=== PATIENT | male | born 1980 | race Caucasian/White ===

== ENCOUNTER 2020-07-11 20:04 | Inpatient (IN) | payer MEDICAID ==
[~2020-07-11] VITALS: Ht 177.8 cm; Wt 63.0 kg
[2020-07-11] MEDS ORDERED: DICYCLOMINE HCL 10 MG CAPSULE PO ONE ×2 (20:43→21:00)
--- NOTE | 2020-07-11 20:45 | NUR ---
UNABLE TO PROVIDE URINE SAMPLE
[2020-07-11 20:53] LABS: BASOPHILS % (AUTO) 0.2 % (0.0-2.0); HEMATOCRIT 24 % (39-51); LYMPHOCYTES # (AUTO) 1.6 /CMM (0.8-4.8); LYMPHOCYTES % (AUTO) 10.4 % (20.0-44.0); MEAN CORPUSCULAR HGB CONC 28 g/dl (31.0-36.0); MEAN CORPUSCULAR VOLUME 56 fL (80-96); MONOCYTES # (AUTO) 0.7 /CMM (0.1-1.30); MONOCYTES % (AUTO) 4.4 % (2.0-12.0); NEUTROPHILS # (AUTO) 13.5 /CMM (1.8-8.9); PLATELET COUNT (AUTO) 286 /CMM (150-450); RED BLOOD CELL COUNT(AUTO) 4.22 MIL/uL (4.5-6.0); WHITE BLOOD COUNT (AUTO) 15.8 K/uL (4.3-11.0)
[2020-07-11 21:00] LABS: HEMOGLOBIN 6.7 g/dL (13.5-17.5)
[2020-07-11] MEDS ORDERED: IV NS 0.9% 1,000 ML BAG IV ONE ×2 (21:00→22:30)
[2020-07-11 21:15] LABS: ALBUMIN 2.6 g/dL (3.4-5.0); BILIRUBIN,DIRECT 0.2 mg/dL (0.0-0.2); BILIRUBIN,TOTAL 0.5 mg/dL (0.2-1.0); CALCIUM, SERUM 8.5 mg/dL (8.5-10.1); CREATININE 1.4 mg/dL (0.6-1.3); POTASSIUM 3.9 mmol/L (3.5-5.1); TOTAL PROTEIN, SERUM 7.2 g/dL (6.4-8.2)
--- NOTE | 2020-07-11 21:34 | NUR ---
MIGUELID SWABBED, SENT TO LAB.
[2020-07-11 21:45] LABS: BAND % (MANUAL) 12 % (0.0-5.0); LYMPHOCYTES % (MANUAL) 8 % (16-48); MONOCYTES % (MANUAL) 4 % (0-11.0); NEUTROPHILS % (MANUAL) 76 (42-76)
--- NOTE | 2020-07-11 21:48 | NUR ---
CALLED LAB REGARDING BLOOD WORK. WILL CALL BACK.
[2020-07-11] MEDS ORDERED: ONDANSETRON HCL/PF 4 MG/2 ML VIAL IV ONE (22:00)
[2020-07-11] MEDS ORDERED: MORPHINE SULFATE INJ 2 MG/ML DISP.SYRIN IV ONE (22:00)
[2020-07-11] MEDS ORDERED: IOHEXOL-300 100 ML VIAL IV ONE (22:01)
[2020-07-11] MEDS ORDERED: IV NS 0.9% 250 ML IV ONE (22:02)
[2020-07-11] MEDS ORDERED: CT SWABBABLE VALVE TRANS SET 1 EA INFUS.SET MC ONE (22:03)
--- NOTE | 2020-07-11 22:24 | NUR ---
LAB CALLED REGARDING NEGATIVE COVID RESULT.
[2020-07-11] MEDS ORDERED: ONDANSETRON HCL/PF 4 MG/2 ML VIAL ONE (22:30)
[2020-07-11] MEDS ORDERED: MORPHINE SULFATE INJ 4 MG/ML DISP.SYRIN ONE (22:30)
--- NOTE | 2020-07-11 22:38 | NUR ---
PT MEDICATED, VSS. 09/29 PAIN.
--- NOTE | 2020-07-11 22:40 | NUR ---
RADIOLOGIST SPEAKING TO PA REGARDING PT.
--- NOTE | 2020-07-11 22:44 | NUR ---
DR. DINERO (GENERAL SURGERY) SPEAKING TO ER PAC DISIGRIKIAN REGARDING PLAN OF CARE.
--- NOTE | 2020-07-11 22:50 | NUR ---
TELE 114-2
[2020-07-11] MEDS ORDERED: PIPERACILLIN /TAZOBACTAM 3.375 G VIAL IV ONE (22:54)
--- NOTE | 2020-07-11 22:54 | NUR ---
ANGELICA ALLEN TALKING TO DR. DINERO REGARDING PT.
[2020-07-11] MEDS ORDERED: HYDROMORPHONE 1 MG/1 ML DISP.SYRIN IV ONE (23:00)
[2020-07-11] MEDS ORDERED: PIPERACILLIN /TAZOBACTAM 3.375 G in IV D5W 50 ML IV ONE (23:00)
--- NOTE | 2020-07-11 23:05 | NUR ---
US AT BEDSIDE
[2020-07-11] MEDS ORDERED: HYDROMORPHONE 1 MG/1 ML DISP.SYRIN ONE (23:06)
--- NOTE | 2020-07-11 23:09 | NUR ---
ER TALKING TO DR. HOPPER REGARDING PT ADMISSION
--- NOTE | 2020-07-11 23:18 | NUR ---
CALLED BRIGID BAGLEY, AWARE PT UPGRADED TO ICU PER DR. GORDON.
--- NOTE | 2020-07-11 23:20 | NUR ---
ANGELICA ALLEN SPEAKING TO PT.
--- NOTE | 2020-07-11 23:20 | NUR ---
PT REASSIGNED TO 259
--- NOTE | 2020-07-11 23:26 | NUR ---
PT STATED DOES NOT TAKE ANY HOME MEDICATIONS.
[2020-07-11] MEDS ORDERED: ZOLPIDEM TARTRATE 5 MG TABLET PO PRN (23:30)
[2020-07-11] MEDS ORDERED: MAG HYDROX/AL HYDROX/SIMETH 30 ML UDC PO PRN (23:30)
[2020-07-11] MEDS ORDERED: MAGNESIUM HYDROXIDE 30 ML UDC PO PRN (23:30)
[2020-07-11] MEDS ORDERED: ACETAMINOPHEN 325 MG TABLET PO PRN (23:30)
[2020-07-11] MEDS ORDERED: MORPHINE SULFATE INJ 4 MG/ML DISP.SYRIN IV PRN (23:30)
[2020-07-11] MEDS ORDERED: Z GUARD REMEDY 2 OZ OINT TP PRN (23:30)
--- NOTE | 2020-07-11 23:38 | NUR ---
REPORT GIVEN TO PIEDAD RAINEY FOR MAXINE
[2020-07-11 23:43] LABS: BILIRUBIN,URINE Negative (NEGATIVE); COLOR,URINE YELLOW (YELLOW); LEUKOCYTE ESTERASE ,URINE Negative (NEGATIVE); NITRITE, URINE Negative (NEGATIVE); PH,URINE 5.5 (5.0-8.0); PROTEIN,URINE 30 mg/dl (NEGATIVE); UGLUCOSE Negative (NEGATIVE); UROBILINOGEN,URINE 0.2 EU/dL (0.2)
[2020-07-11 23:55] VITALS: BP 111/66
--- NOTE | 2020-07-11 23:59 | NUR ---
RN/ICU-ADMITTED THIS 39 Y/O MALE FROM ER BY GENNARO ,ACCOMPANIED BY ER STAFF PER ACLS PROTOCOL.NURSING FOCUS: ALTERED COMFORT R/T DIAGNOSIS PERFORATION. ROUTINE ICU ADMISSION CARE INITIATED. AWAKE, ALERT, EXPRESSIVE OF NEEDS.BREATHING C0MES EASY. SATS.-100%,BP-111/66, HR-131 ST. C/O ABDOMINAL PAIN 5/10, ACHY.PT. JUST RECEIVED DILAUDID IVP IN ER. WILL REASSESS PT. AND MEDICATE W/ PAIN MEDICATION NEEDED PER MD ORDER.
--- NOTE | 2020-07-11 23:59 | NUR ---
PT TRANSFERED PER ACLS PROTOCOL
[2020-07-12] VITALS (42 sets, daily range): BP systolic 86–120; BP diastolic 46–72
[2020-07-12] MEDS: IV NS 0.9% 1,000 ML IV PRN ×3 (00:08→19:28)
--- NOTE | 2020-07-12 00:49 | NUR ---
RN/ICU- PT. FOR BLOOD TRANSFUSION OF 2 UNITS PRBC, FOR HH-6.10/13. FIRST UNIT PRBC STARTED. WILL MONITOR PT. CLOSELY FOR ADVERSE REACTIONS.
[2020-07-12 00:53] LABS: BACTERIA,URINE 2+ /HPF (None Seen); MUCUS,URINE Few /LPF (None Seen); RBC,URINE 0-2 /HPF (0-2); SQUAMOUS EPITHELIAL CELL,UR Few /HPF (None Seen); URINE AMORPHOUS URATE Moderate /HPF (None Seen)
--- NOTE | 2020-07-12 01:00 | NUR ---
RN/ICU-PT. C/O ABDOMINAL PAIN, ACHY 10/30, MEDICATED W/ MORPHINE 4MG SIVP. WILL REASSESS FOR PRN EFFECTIVENESS.
--- NOTE | 2020-07-12 01:30 | NUR ---
RN/ICU-DR. HOPPER HERE TO SEE PT.
--- NOTE | 2020-07-12 03:20 | NUR ---
RN/ICU- FIRST UNIT OF BLOOD PRBC TRANSFUSED W/ NO REACTION
[2020-07-12] MEDS: MORPHINE SULFATE INJ 4 MG/ML DISP.SYRIN IV PRN ×4 (03:56→21:22)
[2020-07-12 04:47] LABS: CALCIUM, SERUM 7.9 mg/dL (8.5-10.1); MAGNESIUM 2.1 mg/dL (1.8-2.4); PHOSPHORUS 2.7 mg/dL (2.5-4.9); POTASSIUM 4.3 mmol/L (3.5-5.1)
[2020-07-12 05:20] LABS: THYROID STIMULATING HORMONE 2.315 uIU/mL (0.358-3.74)
[2020-07-12] MEDS ORDERED: FENTANYL PF 250MCG/5ML AMPUL ONE ×2 (05:25→05:26)
[2020-07-12] MEDS ORDERED: FAMOTIDINE/PF INJ 20 MG/2 ML VIAL IV ONE (05:26)
[2020-07-12] MEDS ORDERED: HYDROMORPHONE INJ 2 MG/ML DISP.SYRIN ONE (05:26)
[2020-07-12] MEDS ORDERED: MIDAZOLAM HCL 2 MG/2ML VIAL ONE (05:26)
[2020-07-12] MEDS ORDERED: ANESTHESIA TRAY IN PYXIS 1 EA TRAY MC ONE (05:45)
--- NOTE | 2020-07-12 05:48 | NUR ---
RN/ICU- SECOND UNIT PF PRBC TRANSFUSED W/ NO REACTION
--- NOTE | 2020-07-12 05:55 | NUR ---
RN/ICU- TO OR BY BED ACCOMPANIED BY OR STAFF PER PROTOCOL.
[2020-07-12 06:42] LABS: BASOPHILS # (AUTO) 0.2 /CMM (0.0-0.2); BASOPHILS % (AUTO) 0.9 % (0.0-2.0); HEMATOCRIT 24 % (39-51); HEMOGLOBIN 7.5 g/dL (13.5-17.5); LYMPHOCYTES # (AUTO) 1.2 /CMM (0.8-4.8); LYMPHOCYTES % (AUTO) 6.9 % (20.0-44.0); MEAN CORPUSCULAR HGB CONC 31 g/dl (31.0-36.0); MEAN CORPUSCULAR VOLUME 65 fL (80-96); MONOCYTES # (AUTO) 0.6 /CMM (0.1-1.30); MONOCYTES % (AUTO) 3.7 % (2.0-12.0); NEUTROPHILS # (AUTO) 15.6 /CMM (1.8-8.9); NEUTROPHILS % (AUTO) 88.5 % (43.0-81.0); PLATELET COUNT (AUTO) 218 /CMM (150-450); RED BLOOD CELL COUNT(AUTO) 3.71 MIL/uL (4.5-6.0); WHITE BLOOD COUNT (AUTO) 17.7 K/uL (4.3-11.0)
[2020-07-12] MEDS ORDERED: METRONIDAZOLE 500MG/ NS 100ML 100 ML IV ONE (06:55)
--- NOTE | 2020-07-12 07:15 | NUR ---
RN NOTES PT STILL IN OR
[2020-07-12] MEDS ORDERED: PIPERACILLIN /TAZOBACTAM 3.375 G in IV D5W 100 ML IV SCH (08:00)
[2020-07-12 08:58] LABS: BASOPHILS # (AUTO) 0.1 /CMM (0.0-0.2); BASOPHILS % (AUTO) 0.7 % (0.0-2.0); HEMATOCRIT 26 % (39-51); HEMOGLOBIN 7.8 g/dL (13.5-17.5); LYMPHOCYTES # (AUTO) 1.1 /CMM (0.8-4.8); LYMPHOCYTES % (AUTO) 6.2 % (20.0-44.0); MEAN CORPUSCULAR HGB CONC 30 g/dl (31.0-36.0); MEAN CORPUSCULAR VOLUME 66 fL (80-96); MONOCYTES # (AUTO) 0.7 /CMM (0.1-1.30); NEUTROPHILS # (AUTO) 16.3 /CMM (1.8-8.9); NEUTROPHILS % (AUTO) 89.1 % (43.0-81.0); PLATELET COUNT (AUTO) 231 /CMM (150-450); RED BLOOD CELL COUNT(AUTO) 3.93 MIL/uL (4.5-6.0); WHITE BLOOD COUNT (AUTO) 18.3 K/uL (4.3-11.0)
[2020-07-12 09:06] LABS: CALCIUM, SERUM 7.8 mg/dL (8.5-10.1); POTASSIUM 4.4 mmol/L (3.5-5.1)
--- NOTE | 2020-07-12 09:10 | NUR ---
RN NOTES RECEIVED PT FROM OR, SP EXPLORE LAPAROTOMY. PT A/OX4, ON 02 VIA NC AT 2LPM. NO SOB NOTED. DENIES PAIN AT THIS TIME. HOB ELEVATED. COLOSTOMY AND EVERETTE DRAIN NOTED. NO BLEEDING ON SURGICAL INCISION SITE. IV LINES IN PLACE. IVF RESTARTED.MONTAÑO IN PLACE. CALL LIGHT WTIHIN REACH. WILL CLOSELY MONITOR
[2020-07-12] MEDS: PANTOPRAZOLE 40 MG VIAL IV SCH (09:58)
[2020-07-12] MEDS: ANCEF 1 GM/50 ML D5W IV SCH ×2 (14:15→21:59)
[2020-07-12] MEDS: METRONIDAZOLE 500MG/ NS 100ML 500 MG in PREMIX 1 EA IV SCH ×2 (15:06→22:31)
--- NOTE | 2020-07-12 16:20 | NUR ---
RN NOTES PT REMAINS STABLE. NO SIGNIFICANT CHANGE NOTED. REPORT GIVEN TO BRIGID GARCIA. TOOK OVER PT'S CARE
--- NOTE | 2020-07-12 16:30 | NUR ---
RN NOTES RECEIVED REPORT FROM BRIGID FREEMAN FOR CONTINUITY OF CARE. PATIENT IS AWAKE, ALERT AND ORIENTED. SATURATING WELL ON RA. NSR ON TELE MONITOR. VITAL SIGNS POST OP STABLE. ABDOMINAL DRESSING DRY AND INTACT. EVERETTE BULB SUCTION INTACT.COLOSTOMY BAG WITH SCANT OUTPUT. MONTAÑO DRAINING TO GRAVITY. SAFETY CHECKS IN PLACE. WILL CONTINUE TO MONITOR.
--- NOTE | 2020-07-12 17:20 | NUR ---
RN NOTE PATIENT C/O 7-10 GENERALIZED ABDO PAIN. IV MORPHINE GIVEN PRESCRIBED. INCENTIVE SPIROMETRY OFFERED AND EDUCATED ON HOW TO USE.
[2020-07-12] MEDS ORDERED: diphenhydrAMINE HCL 50 MG/ML VIAL IV ONE (18:30)
[2020-07-12] MEDS ORDERED: ACETAMINOPHEN 325 MG TABLET PO ONE (18:30)
--- NOTE | 2020-07-12 19:00 | NUR ---
RN CLOSING NOTES PATIENT REMAINS AWAKE, ALERT AND ORIENTED. NOT IN ANY RESPIRATORY DISTRESS. RBC IN PROGRESS WITH NO SIGNS OF ADVERSE REACTIONS AT THIS TIME. VITAL SIGNS REMAIN STABLE. EVERETTE BULB EMPTIED 40MLS. COLOSTOMY BAG WITH SCANT OUTPUT. MONTAÑO DRAINING 900MLS. SAFETY CHECKS IN PLACE. WILL ENDORSE TO NIGHT RN FOR CONTINUITY OF CARE.
--- NOTE | 2020-07-12 19:17 | NUR ---
RN NOTE RECEIVED PT AWAKE AND ALERT/ORIENTED X 4. ON ROOM AIR WITHOUT APPARENT DISTRESS. CURRENTLY DENIES SHORTNESS OF BREATH, PAIN OR DISCOMFORT, VITAL SIGNS STABLE VIA BEDSIDE MONITOR. WITH ONGOING BLOOD TRANSFUSION VIA LEFT AC IV. NO ADVERSE REACTIONS CURRENTLY NOTED. S/P SURGERY TODAY. DRESSING CLEAN AND INTACT. WITH EVERETTE DRAIN WITH MINIMAL DRAINAGE NOTED. WITH RIGHT COLOSTOMY WITH SCANT DRAINAGE/OUTPUT. MONTAÑO CATHETER PATENT AND IN PLACE DRAINING URINE VIA GRAVITY. ALSO WITH RIGHT AC IV WITH NS @ 125ML/HOUR RUNNING ORDERED WITHOUT SIGNS OF COMPLICATIONS AT SITE, PLAN OF CARE DISCUSSED, SAFETY MEASURES IN PLACE PER PROTOCOL, CALL LIGHT WITHIN REACH, WILL MONITOR PATIENT.
--- NOTE | 2020-07-12 20:04 | NUR ---
RN NOTE PT EDUCATED ON USE OF INCENTIVE SPIROMETER. PT VERBALIZED UNDERSTANDING. DENIES PAIN OR DISCOMFORT AT THIS TIME.
--- NOTE | 2020-07-12 21:50 | NUR ---
RN NOTE BLOOD TRANSFUSION COMPLETED. NO ADVERSE REACTIONS NOTED. VITAL SIGNS STABLE VIA BEDSIDE MONITOR. WILL CONTINUE TO MONITOR PT.
--- NOTE | 2020-07-12 22:11 | NUR ---
RN NOTE PT REPORTED "SOME DIFFICULTY BREATHING". RESPIRATIONS UNLABORED. SPO2 97%. PLACED PT ON 2L OF O2 VIA NC PER REQUEST WITH VERBALIZATION OF RELIEF OF SYMPTOMS.
[2020-07-13] VITALS (25 sets, daily range): BP systolic 98–113; BP diastolic 56–72
[2020-07-13] MEDS: MORPHINE SULFATE INJ 4 MG/ML DISP.SYRIN IV PRN ×2 (01:38→04:06)
[2020-07-13] MEDS: IV NS 0.9% 1,000 ML IV PRN ×3 (04:06→21:17)
[2020-07-13] MEDS: ONDANSETRON HCL/PF 4 MG/2 ML VIAL IVP PRN (04:06)
[2020-07-13 04:44] LABS: BASOPHILS % (AUTO) 0.1 % (0.0-2.0); EOSINOPHILS % (AUTO) 0.2 % (0.0-6.0); HEMATOCRIT 25 % (39-51); HEMOGLOBIN 7.9 g/dL (13.5-17.5); LYMPHOCYTES # (AUTO) 3.2 /CMM (0.8-4.8); LYMPHOCYTES % (AUTO) 25.9 % (20.0-44.0); MEAN CORPUSCULAR HGB CONC 31 g/dl (31.0-36.0); MEAN CORPUSCULAR VOLUME 67 fL (80-96); MONOCYTES # (AUTO) 0.6 /CMM (0.1-1.30); NEUTROPHILS # (AUTO) 8.6 /CMM (1.8-8.9); NEUTROPHILS % (AUTO) 68.8 % (43.0-81.0); PLATELET COUNT (AUTO) 216 /CMM (150-450); RED BLOOD CELL COUNT(AUTO) 3.77 MIL/uL (4.5-6.0); WHITE BLOOD COUNT (AUTO) 12.5 K/uL (4.3-11.0)
[2020-07-13 04:53] LABS: CALCIUM, SERUM 7.9 mg/dL (8.5-10.1); CREATININE 0.9 mg/dL (0.6-1.3); PHOSPHORUS 2.3 mg/dL (2.5-4.9)
[2020-07-13] MEDS: ANCEF 1 GM/50 ML D5W IV SCH ×3 (05:00→21:09)
--- NOTE | 2020-07-13 05:00 | NUR ---
RN NOTE PT AWAKE IN BED IN NO APPARENT DISTRESS. OFFERED PT PARTIAL BED BATH AND/OR LINEN CHANGE BUT PT REFUSED.
--- NOTE | 2020-07-13 05:39 | NUR ---
RN NOTE MONTAÑO CATHETER DISCONTINUED PER MD ORDER. PT TOLERATED WELL. URINAL AT BEDSIDE REACHABLE.
[2020-07-13] MEDS: METRONIDAZOLE 500MG/ NS 100ML 500 MG in PREMIX 1 EA IV SCH ×3 (06:08→22:34)
--- NOTE | 2020-07-13 06:08 | NUR ---
RN NOTE HGB 7.9. WITH STANDING ORDER TO TRANSFUSE ADDITIONAL BLOOD IF HGB < 8. BLOOD TRANSFUSION STARTED VIA RIGHT HAND. WILL MONITOR PATIENT.
--- NOTE | 2020-07-13 06:41 | NUR ---
RN NOTE NO ACUTE CHANGES OBSERVED OVERNIGHT. PT AWAKE AND ALERT/ORIENTED X 4. PT ON 2L OF O2 VIA NC. RESPIRATIONS UNLABORED. CURRENTLY DENIES PAIN OR DISCOMFORT. ONGOING TRANSFUSION OF 1 UNIT PRBCS. CURRENTLY NO ADVERSE REACTIONS NOTED. VITAL SIGNS STABLE VIA BEDSIDE MONITOR. SURGICAL DRESSING DRY AND INTACT. EVERETTE DRAIN WITH 20ML OF OUTPUT. SCANT DRAINAGE VIA COLOSTOMY. ALL NEEDS MET AND ATTENDED TO, WILL ENDORSE TO MORNING RN FOR MAXINE.
--- NOTE | 2020-07-13 07:15 | NUR ---
RN INITIAL NOTES RECEIVED PT AWAKE,A/O. ON 02 VIA NC AT 2LPM. DENIES ANY PAIN AT THIS TIME. IVF INFUSING. 1 UNIT OF PRBC TRANSFUISNG. NO REACTION NOTED. PT COMFORTABLE. CALL LIGHT WITHIN REACH. WILL MONITOR
[2020-07-13 08:07] LABS: IMMUNOGLOBULIN A, SERUM 271 mg/dL (90-386); IMMUNOGLOBULIN G, SERUM 623 mg/dL (603-1613); IMMUNOGLOBULIN M, SERUM 96 mg/dL (20-172)
[2020-07-13] MEDS: PANTOPRAZOLE 40 MG VIAL IV SCH (08:20)
[2020-07-13] MEDS: HYDROMORPHONE 1 MG/1 ML DISP.SYRIN IV PRN ×4 (09:24→21:09)
[2020-07-13 11:07] LABS: *SPE A/G RATIO 0.7 (0.7-1.7); *SPE ALBUMIN 2.1 g/dL (2.9-4.4); *SPE ALPHA-1-GLOBULIN 0.5 g/dL (0.0-0.4); *SPE ALPHA-2-GLOBULIN 0.9 g/dL (0.4-1.0); *SPE GLOBULIN, TOTAL 2.9 g/dL (2.2-3.9); *SPE M-SPIKE Not Observed g/dL (Not Observed); *SPEGAMMA GLOBULIN 0.5 g/dL (0.4-1.8)
[2020-07-13] MEDS ORDERED: Sodium Phosphate 15 MMOL in IV NS 0.9% 245 ML IV SCH (13:00)
--- NOTE | 2020-07-13 17:00 | NUR ---
RN NOTES PT TRANSFERRED TO ROOM 321-1.PT A/OX4, ON ROOM AIR. NO SOB NOTED. DENIES ANY PAIN AT THIS TIME. BEDSIDE REPORT GIVEN TO MARISOL. TOOK OVER PT'S CARE. PT IN STABLE CONDITION.
--- NOTE | 2020-07-13 17:15 | NUR ---
m/s machine folder: notes received pt from icu via bed, pt is awake, a/ox4. oriented to room and surroundings. vss, afebrile. humberto drain intact. colostomy intact and secure with pouch. instructed to call for assistance. will continue to monitor.
--- NOTE | 2020-07-13 17:22 | NUR ---
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 instructed to call for assistance. will continue to monitor.
--- NOTE | 2020-07-13 19:08 | NUR ---
m/s supervisor polishing: notes report given to demetri (rn) for continuity of care.
--- NOTE | 2020-07-13 19:15 | NUR ---
MS RN OPENING NOTE PATIENT AWAKE, A/O X4. EVERETTE DRAIN INTACT, DRAINING SEROUS FLUID. COLOSTOMY INTACT, SMALL AMOUNT OF BLOODY/SEROSANGUINEOUS FLUID IN THE POUCH. IV ACCESS INTACT, IV FLUIDS INFUSING WELL. PATIENT COMPLAINS OF MILD DISCOMFORT IN THE ABDOMINAL AREA. SAFETY PRECAUTIONS IN PLACE: BED IN LOCKED AND LOWEST POSITION, CALL LIGHT WITHIN REACH, URINAL WITHIN REACH. ENCOURAGED PATIENT TO CALL IF IN NEED OF ANY HELP. WILL MONITOR PATIENT CLOSELY.
[2020-07-13] MEDS ORDERED: LIDOCAINE 1% INJ 50 ML MDV IJ ONE (20:00)
--- NOTE | 2020-07-13 20:30 | NUR ---
MS RN NOTE PATIENT MOVED TO 320-1, PER PATIENT REQUEST TO PROMOTE REST AND SLEEP.
--- NOTE | 2020-07-13 21:10 | NUR ---
MS RN NOTE PATIENT GIVEN DILAUDID 1MG FOR PAIN ON THE ABDOMEN 9/10 ON PAIN SCALE OF 0-10.
[2020-07-14] MEDS: HYDROMORPHONE 1 MG/1 ML DISP.SYRIN IV PRN ×6 (00:30→17:02)
--- NOTE | 2020-07-14 00:30 | NUR ---
MS RN NOTE PATIENT GIVEN DILAUDID 1 MG FOR PAIN 10/10 ON 0-10 PAIN SCALE.
--- NOTE | 2020-07-14 03:36 | NUR ---
MS RN NOTE PATIENT GIVEN DILAUDID 1 MG FOR ABDOMINAL PAIN 10/10 ON 0-10 PAIN SCALE.
[2020-07-14] MEDS: ANCEF 1 GM/50 ML D5W IV SCH ×3 (05:42→22:20)
[2020-07-14] MEDS: IV NS 0.9% 1,000 ML IV PRN ×2 (06:24→17:10)
[2020-07-14] MEDS: METRONIDAZOLE 500MG/ NS 100ML 500 MG in PREMIX 1 EA IV SCH ×3 (06:24→23:10)
--- NOTE | 2020-07-14 06:33 | NUR ---
MS RN NOTE PATIENT GIVEN DILAUDID 1 MG FOR ABDOMINAL PAIN 10/10 ON 0-10 PAIN SCALE.
[2020-07-14 06:45] LABS: BASOPHILS % (AUTO) 0.3 % (0.0-2.0); EOSINOPHILS % (AUTO) 0.2 % (0.0-6.0); HEMATOCRIT 31 % (39-51); HEMOGLOBIN 9.4 g/dL (13.5-17.5); LYMPHOCYTES # (AUTO) 0.7 /CMM (0.8-4.8); LYMPHOCYTES % (AUTO) 4.7 % (20.0-44.0); MEAN CORPUSCULAR HGB CONC 30 g/dl (31.0-36.0); MEAN CORPUSCULAR VOLUME 72 fL (80-96); MONOCYTES # (AUTO) 1.2 /CMM (0.1-1.30); MONOCYTES % (AUTO) 7.8 % (2.0-12.0); NEUTROPHILS # (AUTO) 13.2 /CMM (1.8-8.9); PLATELET COUNT (AUTO) 253 /CMM (150-450); RED BLOOD CELL COUNT(AUTO) 4.31 MIL/uL (4.5-6.0); WHITE BLOOD COUNT (AUTO) 15.1 K/uL (4.3-11.0)
--- NOTE | 2020-07-14 06:52 | NUR ---
MS RN CLOSING NOTE PATIENT IN BED, AWAKE, A/O X 4. PATIENT ABLE TO MAKE NEEDS KNOWN. BREATHING EVEN AND UNLABORED. NO SOB, DYSPNEA. EVERETTE DRAIN INTACT, 30 ML TOTAL. COLOSTOMY SCANT DRAINAGE. PATIENT COMPLAINS OF MILD PAIN AT THIS TIME. PATIENT WAS GIVEN DILAUDID AT 0633. PAIN MANAGED THROUGHOUT THE SHIFT. ALL NEEDS MET AND ATTENDED. SAFETY MEASURES MAINTAINED. WILL ENDORSE TO DAY SHIFT NURSE FOR MAXINE.
--- NOTE | 2020-07-14 07:28 | NUR ---
MS RN OPENING NOTES RECEIVED PATIENT IN BED, ASLEEP. PATIENT ON ROOM AIR; BREATHING EVEN AND UNLABORED. NO S/S OF PAIN SUCH FACIAL GRIMACING, MOANING OR GUARDING NOTED AT THIS TIME. R SIDE EVERETTE DRAIN PRESENT. COLOSTOMY SCANT IN PLACE. LAC G # 18 PRESENT AND R HAND G # 20 IV ACCESS PRESENT, INTACT AND INFUSING NS @125 MLS/HR. SAFETY PRECAUTIONS IN PLACE; BED IN LOW POSITION AND LOCKED, RAILS UPX2, CALL LIGHT WITHIN REACH. WILL CONTINUE TO MONITOR PATIENT.
[2020-07-14 07:47] LABS: CALCIUM, SERUM 8.4 mg/dL (8.5-10.1); CREATININE 0.8 mg/dL (0.6-1.3); MAGNESIUM 1.9 mg/dL (1.8-2.4); PHOSPHORUS 2.7 mg/dL (2.5-4.9); POTASSIUM 3.4 mmol/L (3.5-5.1)
[2020-07-14 08:00] VITALS: BP 104/73
[2020-07-14] MEDS: PANTOPRAZOLE 40 MG VIAL IV SCH (08:05)
--- NOTE | 2020-07-14 09:43 | NUR ---
MS RN NOTES PATIENT COMPLAINING OF PAIN 10/10 ABDOMINAL AREA; REQUESTING PAIN MEDICATION. PRN DILAUDID ADMINISTERED PER MD ORDER.
[2020-07-14] MEDS ORDERED: POTASSIUM CHLORIDE 20 MEQ TAB.PRT.SR PO SCH (11:00)
[2020-07-14] MEDS: SOD FERRIC GLUC 125 MG in IV NS 0.9% 100 ML IV SCH (15:40)
[2020-07-14 16:00] VITALS: BP 115/70
--- NOTE | 2020-07-14 18:56 | NUR ---
MS RN CLOSING NOTES PATIENT IN BED, AWAKE, ALERT, ORIENTED X4, ABLE TO MAKE NEEDS KNOWN. BREATHING EVEN AND NON-LABORED. NO COMPLAINT OF PAIN OR DISCOMFORT AT THIS TIME. EVERETTE DRAIN NOTED, INTACT WITH SEROSANGUINEOUS DRAINAGE. SURGICAL DRESSING NOTED IN THE MID ABDOMEN, INTACT, NO FOUL ODOR. COLOSTOMY ON LEFT ABDOMEN NOTED, INTACT. ALL DUE MEDS ARE GIVEN ORDERED, TOLERATED WELL, NO ADR NOTED. KEPT CLEAN AND DRY. SAFETY MEASURES IN PLACE; BED IN LOWEST LOCKED POSITION WITH SIDERAILS UP. ALL NEEDS ATTENDED PROMPTLY. CALL LIGHT WITHIN REACH. WILL ENDORSE PLAN OF CARE TO LOCK AND DAM OPERATOR.
--- NOTE | 2020-07-14 19:11 | NUR ---
MS RN OPENING NOTES PATIENT IS AWAKE IN BED AT THIS TIME. PT IS ALERT AND ORIENTED X4. PATIENT IS STABLE ON ROOM AIR AND IN NO RESPIRATORY DISTRESS. PATIENT IS ABLE TO MAKE HIS NEEDS KNOWN. EVERETTE DRAIN NOTED. SURGICAL DRESSING NOTED IN THE MID ABDOMEN. COLOSTOMY ON LEFT ABDOMEN NOTED. PATIENT HAS INTRAVENOUS ACCESSES ON HIS LAC GAUGE #18 AND RIGHT HAND GAUGE #20. BOTH INTRAVENOUS ACCESSES ARE INTACT AND PATENT. SAFETY MEASURES ARE KEPT IN PLACE. BED IS IN A LOCKED POSITION WITH SIDE RAILS UP X3. CALL LIGHT IS WITHIN REACH OF THE PATIENT. WILL CONTINUE TO MONITOR THE PATIENT.
[2020-07-14] MEDS: ONDANSETRON HCL/PF 4 MG/2 ML VIAL IVP PRN ×4 (19:44→23:50)
[2020-07-14 20:00] VITALS: BP 118/71
--- NOTE | 2020-07-14 23:44 | NUR ---
MS RN NOTES PATIENT WAS NOT GIVEN ZOFRAN 4 MG INTRAVENOUSLY AT 2344 BECAUSE THE MEDICATION ORDER FREQUENCY IS EVERY 6 HOURS NEEDED AND THE PATIENT'S LAST DOSE WAS AT 1944. RN WILL GIVE THE ZOFRAN 4MG SOON 0144 IF THE PATIENT IS EXPERIENCING ANY NAUSEA/VOMITING. WILL CONTINUE TO MONITOR THE PATIENT.
[2020-07-15] MEDS: ONDANSETRON HCL/PF 4 MG/2 ML VIAL IVP PRN ×2 (01:54→08:37)
[2020-07-15] MEDS: IV NS 0.9% 1,000 ML IV PRN ×2 (05:27→17:13)
[2020-07-15] MEDS: METRONIDAZOLE 500MG/ NS 100ML 500 MG in PREMIX 1 EA IV SCH ×3 (07:12→07:56)
--- NOTE | 2020-07-15 07:13 | NUR ---
MS RN NOTES PATIENT'S INTRAVENOUS FLAGYL WAS NOT GIVEN AT 0713. THE MEDICATION WAS ACCIDENTLY SCANNED. THE MEDICATION WAS ACTUALLY GIVEN AT 0756. WILL CONTINUE TO MONITOR THE PATIENT.
[2020-07-15] MEDS: ANCEF 1 GM/50 ML D5W IV SCH ×3 (07:14→21:26)
[2020-07-15 07:19] LABS: BASOPHILS % (AUTO) 0.2 % (0.0-2.0); HEMATOCRIT 36 % (39-51); HEMOGLOBIN 10.6 g/dL (13.5-17.5); LYMPHOCYTES # (AUTO) 0.9 /CMM (0.8-4.8); LYMPHOCYTES % (AUTO) 4.8 % (20.0-44.0); MEAN CORPUSCULAR HGB CONC 30 g/dl (31.0-36.0); MEAN CORPUSCULAR VOLUME 73 fL (80-96); MONOCYTES # (AUTO) 1.5 /CMM (0.1-1.30); MONOCYTES % (AUTO) 7.8 % (2.0-12.0); NEUTROPHILS # (AUTO) 16.3 /CMM (1.8-8.9); NEUTROPHILS % (AUTO) 87.2 % (43.0-81.0); PLATELET COUNT (AUTO) 310 /CMM (150-450); RED BLOOD CELL COUNT(AUTO) 4.84 MIL/uL (4.5-6.0); WHITE BLOOD COUNT (AUTO) 18.7 K/uL (4.3-11.0)
--- NOTE | 2020-07-15 07:30 | NUR ---
MS RN CLOSING NOTES PATIENT IS AWAKE IN BED AT THIS TIME. PT IS ALERT AND ORIENTED X4. PATIENT IS STABLE ON ROOM AIR AND IN NO RESPIRATORY DISTRESS. PATIENT IS ABLE TO MAKE HIS NEEDS KNOWN. EVERETTE DRAIN NOTED. SURGICAL DRESSING NOTED IN THE MID ABDOMEN. COLOSTOMY ON LEFT ABDOMEN NOTED. PATIENT HAS INTRAVENOUS ACCESS ON RIGHT HAND GAUGE #20. INTRAVENOUS ACCESS IS INTACT AND PATENT. SAFETY MEASURES ARE KEPT IN PLACE. BED IS IN A LOCKED POSITION WITH SIDE RAILS UP X3. CALL LIGHT IS WITHIN REACH OF THE PATIENT. WILL CONTINUE TO MONITOR THE PATIENT.
--- NOTE | 2020-07-15 07:30 | NUR ---
MS RN NOTES PATIENT'S LATEST POTASSIUM LEVEL WAS 2.5 AND PHOSPHORUS LEVEL WAS 2.3. MORNING SHIFT NURSE WAS MADE AWARE TO INFORM THE DOCTOR TO PUT IN ORDERS TO REPLACE THE LOW POTASSIUM AND PHOSPHOROUS LEVELS.
--- NOTE | 2020-07-15 07:40 | NUR ---
MS RN OPENING NOTES RECEIVED PATIENT AWAKE IN BED. ALERT AND ORIENTED X4. ON ROOM AIR, NO RESPIRATORY DISTRESS OBSERVED . PATIENT IS ABLE TO MAKE HIS NEEDS KNOWN. WITH RT SIDE EVERETTE DRAIN NOTED WITH SANGUINOUS FLUID WITH 20CC RETENTION, SURGICAL DRESSING ON MID ABDOMEN CLEAN AND DRY. COLOSTOMY ON LEFT ABDOMEN WITH BLODDY DISCHARGE AT AROUND 20CC . PATIENT HAS INTRAVENOUS ACCESSES ON HIS LAC GAUGE #18 AND RIGHT HAND GAUGE #20. BOTH INTRAVENOUS ACCESSES ARE INTACT AND PATENT. SAFETY MEASURES ARE KEPT IN PLACE. BED IN A LOW POSITION.,WITH SIDE RAILS UP X3. CALL LIGHTS WITHIN REACH WILL CONTINUE TO MONITOR.
[2020-07-15 07:50] LABS: CALCIUM, SERUM 8.8 mg/dL (8.5-10.1); CREATININE 0.7 mg/dL (0.6-1.3); MAGNESIUM 1.9 mg/dL (1.8-2.4); PHOSPHORUS 3.2 mg/dL (2.5-4.9); POTASSIUM 3.6 mmol/L (3.5-5.1)
[2020-07-15 08:00] VITALS: BP 122/71
--- NOTE | 2020-07-15 08:48 | NUR ---
RN NOTES PT C/O NAUSEA, PRN ZOFRAN 4MG/2ML ADMINISTERED AT 0837. WILL CONTINUE TO MONITOR.
[2020-07-15] MEDS: PANTOPRAZOLE 40 MG VIAL IV SCH (09:07)
[2020-07-15 09:10] LABS: LYMPHOCYTES % (MANUAL) 3 % (16-48); MONOCYTES % (MANUAL) 2 % (0-11.0); MYELOCYTES % 3 % (0-0); NEUTROPHILS % (MANUAL) 92 (42-76)
[2020-07-15] MEDS: HYDROCODONE/APAP 5/325MG TABLET PO PRN ×2 (12:27→17:13)
--- NOTE | 2020-07-15 12:29 | NUR ---
RN NOTES PT C/O ACHING THROBBING PAIN ON MED ABDOMEN, 5/10 SCALE. PRN NORCO 5/325 MG PO GIVEN AT 1227. WILL CONTINUE TO MONITOR AND REASSESS PT.
[2020-07-15] MEDS: SOD FERRIC GLUC 125 MG in IV NS 0.9% 100 ML IV SCH (14:39)
[2020-07-15 16:00] VITALS: BP 112/59
--- NOTE | 2020-07-15 18:40 | NUR ---
MS RN CLOSING NOTES PATIENT IS AWAKE IN BED, NO COMPLAIN OF PAIN AND DISCOMFORT, A/O X4. ON S STABLE CONDITION, ON ROOM AIR, NO RESPIRATORY DISTRESS OBSERVE. EVERETTE DRAIN DRAIN WITH SANGUINOUS FLUID . SURGICAL DRESSING IN MID ABDOMEN CLEAN AND KEPT DRY, COLOSTOMY ON LEFT ABDOMEN NO SIGN OF INFECTION OBSERVED. WITH IV ACCESS ON RIGHT HAND GAUGE #20. INTACT AND PATENT. BED IN LOW POSITION, CALL LIGHTS WITHIN REACH, ALL NEEDS ATTEND, WILL CONTINUE TO MONITOR
[2020-07-15 20:00] VITALS: BP 116/69
--- NOTE | 2020-07-15 20:00 | NUR ---
MS RN NOTE: 1909- received pt. awake on bed; alert and oriented x 4; on room air; on clear liquid diet as ordered; with IVF NSS1L x 125 cc/hr via right hand; with right lower quadrant EVERETTE drain and left lower quadrant colostomy are in place ; siderails x 2 are up; bed alarm is on; call light is within reach; awaiting for possible bone marrow biopsy tomorrow
[2020-07-16] MEDS: HYDROCODONE/APAP 5/325MG TABLET PO PRN ×2 (00:40→04:42)
[2020-07-16] MEDS: IV NS 0.9% 1,000 ML IV PRN ×3 (00:44→22:25)
[2020-07-16] MEDS: ANCEF 1 GM/50 ML D5W IV SCH ×3 (05:11→22:25)
[2020-07-16] MEDS: METRONIDAZOLE 500MG/ NS 100ML 500 MG in PREMIX 1 EA IV SCH ×3 (06:08→23:24)
--- NOTE | 2020-07-16 07:10 | NUR ---
MS RN OPENING NOTES: RECEIVED RESIDENT SLEEP IN BED COMFORTABLY BUT AROUSABLE TO TACTILE AND VERBAL STIMULI, BED IN LOW POSITION, CALL LIGHTS WITHIN REACH, NO COMPLAIN OF PAIN AND DISCOMFORT AT THIS TIME, PATIENT HAS ABDOMINAL SURGERY CLEAN DRY DRESSING INTACT, WITH EVERETTE DRAIN AT THE RIGHT SIDE WITH CLEAR LIGHT BROWNISH, FLUID, DRAINING WELL, WITH COLOSTOMY BAG ON THE LEFT SIDE DRAINING WELL, NO SIGN OF INFECTION WAS OBSERVED, PATIENT IS A/OX4. NO CHANGES IN LOC, AND ABLE TO EXPRESS NEEDS, WILL CONTINUE TO MONITOR.
[2020-07-16 07:29] LABS: CALCIUM, SERUM 7.9 mg/dL (8.5-10.1); CREATININE 0.7 mg/dL (0.6-1.3); POTASSIUM 3.4 mmol/L (3.5-5.1)
[2020-07-16 07:33] LABS: BASOPHILS % (AUTO) 0.2 % (0.0-2.0); HEMATOCRIT 33 % (39-51); HEMOGLOBIN 10.2 g/dL (13.5-17.5); LYMPHOCYTES # (AUTO) 0.9 /CMM (0.8-4.8); LYMPHOCYTES % (AUTO) 5.4 % (20.0-44.0); MEAN CORPUSCULAR HGB CONC 31 g/dl (31.0-36.0); MEAN CORPUSCULAR VOLUME 71 fL (80-96); MONOCYTES # (AUTO) 0.9 /CMM (0.1-1.30); MONOCYTES % (AUTO) 5.7 % (2.0-12.0); NEUTROPHILS # (AUTO) 14.4 /CMM (1.8-8.9); NEUTROPHILS % (AUTO) 88.7 % (43.0-81.0); PLATELET COUNT (AUTO) 399 /CMM (150-450); RED BLOOD CELL COUNT(AUTO) 4.69 MIL/uL (4.5-6.0); WHITE BLOOD COUNT (AUTO) 16.2 K/uL (4.3-11.0)
[2020-07-16 08:00] VITALS: BP 110/67
[2020-07-16] MEDS: PANTOPRAZOLE 40 MG VIAL IV SCH (09:33)
--- NOTE | 2020-07-16 11:17 | NUR ---
RN NOTES: PATIENT SEEN BY DR. DINERO WITH VERBAL ORDER TO COLLECT EVERETTE DRAINAGE FOR CREATININE TEST, SPECIMEN COLLECTED AND SEND TO LABS.
[2020-07-16] MEDS ORDERED: POTASSIUM CHLORIDE 20 MEQ TAB.PRT.SR PO SCH (11:30)
[2020-07-16] MEDS: SOD FERRIC GLUC 125 MG in IV NS 0.9% 100 ML IV SCH (15:00)
[2020-07-16] MEDS: ENSURE CLEAR 237 ML LIQUID (MIX BERRY) PO SCH ×2 (15:23→17:34)
[2020-07-16 16:00] VITALS: BP 143/64
--- NOTE | 2020-07-16 18:45 | NUR ---
MS RN CLOSING NOTES PATIENT IS AWAKE IN BED, NO COMPLAIN OF PAIN AND DISCOMFORT, A/O X4. ON S STABLE CONDITION, ON ROOM AIR, NO RESPIRATORY DISTRESS OBSERVE. EVERETTE DRAIN DRAIN WITH CLEAR LIGHT BROWNISH COLORED FLUID 300CC. SURGICAL DRESSING IN MID ABDOMEN CLEAN AND KEPT DRY, COLOSTOMY ON LEFT ABDOMEN NO SIGN OF INFECTION OBSERVED. WITH IV ACCESS ON RIGHT HAND GAUGE #20. INTACT AND PATENT. PATIENT TRANSFEED TO 313-1 FROM 320-1 BED IN LOW POSITION, CALL LIGHTS WITHIN REACH, ALL NEEDS ATTEND, WILL CONTINUE TO MONITOR
--- NOTE | 2020-07-16 19:15 | NUR ---
MS RN OPENING NOTE PATIENT IN BED, AWAKE. A/O X 4. ABLE TO MAKE NEEDS KNOWN. TOLERATING ROOM AIR. BREATHING EVEN AND UNLABORED. EVERETTE DRAIN INTACT DRAINING SEROUS FLUID. COLOSTOMY INTACT. NO COMPLAINS OF N/V/PAIN OR DISCOMFORT AT THIS TIME. SAFETY PRECAUTIONS IN PLACE. BED IN LOCKED AND LOWEST POSITION, CALL LIGHT WITHIN REACH. ENCOURAGED PATIENT TO CALL IF NEEDED. WILL MONITOR PATIENT CLOSELY.
[2020-07-16 20:00] VITALS: BP 111/75
[2020-07-16] MEDS: ONDANSETRON HCL/PF 4 MG/2 ML VIAL IVP PRN (23:31)
--- NOTE | 2020-07-16 23:31 | NUR ---
MS RN NOTE PATIENT GIVEN ZOFRAN PATIENT COMPLAINED OF NAUSEA. NO EMESIS PRESENT.
[2020-07-17] MEDS ORDERED: METOCLOPRAMIDE HCL 10 MG/2 ML VIAL IV SCH (02:30)
--- NOTE | 2020-07-17 02:40 | NUR ---
MS RN NOTE PATIENT STILL NAUSEATED AND EMESIS PRESENT. 3 EMESIS, TOTAL OF 200 ML EMESIS AMOUNT. RECEIVED ORDER FOR REGLAN PRN, GIVEN TO PATIENT. WILL MONITOR PATIENT CLOSELY.
[2020-07-17] MEDS: ANCEF 1 GM/50 ML D5W IV SCH ×3 (05:45→22:28)
[2020-07-17] MEDS: METRONIDAZOLE 500MG/ NS 100ML 500 MG in PREMIX 1 EA IV SCH ×3 (06:44→23:29)
--- NOTE | 2020-07-17 07:00 | NUR ---
MS RN CLOSING NOTE PATIENT IN BED RESTING, NO N/V PRESENT AT THIS TIME. EVERETTE DRAIN INTACT AND DRAINING WELL, TOTAL OF 435 ML DURING THE SHIFT. COLOSTOMY TOTAL OF 20 ML, COLOSTOMY BAG CHANGED. ALL NEEDS MET AND ATTENDED. ROUTINE MEDICATIONS AND PRN MEDICATIONS GIVEN. ALL ORDERS CARRIED OUT. SAFETY MEASURES MAINTAINED. ENDORSED TO DAY SHIFT NURSE.
[2020-07-17 07:05] LABS: BASOPHILS % (AUTO) 0.1 % (0.0-2.0); EOSINOPHILS % (AUTO) 0.3 % (0.0-6.0); HEMATOCRIT 35 % (39-51); LYMPHOCYTES # (AUTO) 0.9 /CMM (0.8-4.8); MEAN CORPUSCULAR HGB CONC 31 g/dl (31.0-36.0); MEAN CORPUSCULAR VOLUME 71 fL (80-96); MONOCYTES # (AUTO) 0.8 /CMM (0.1-1.30); MONOCYTES % (AUTO) 5.6 % (2.0-12.0); PLATELET COUNT (AUTO) 483 /CMM (150-450); RED BLOOD CELL COUNT(AUTO) 4.96 MIL/uL (4.5-6.0); WHITE BLOOD COUNT (AUTO) 14.8 K/uL (4.3-11.0)
[2020-07-17 07:17] LABS: CALCIUM, SERUM 7.9 mg/dL (8.5-10.1); CREATININE 0.8 mg/dL (0.6-1.3); MAGNESIUM 1.5 mg/dL (1.8-2.4); PHOSPHORUS 2.4 mg/dL (2.5-4.9); POTASSIUM 3.4 mmol/L (3.5-5.1)
--- NOTE | 2020-07-17 07:30 | NUR ---
received pt. in am alert and oriented x4.skin warm and dry.vs stable.abd.dressing dry and intact.humberto site intact.
[2020-07-17] MEDS: ENSURE CLEAR 237 ML LIQUID (MIX BERRY) PO SCH ×3 (08:00→17:00)
--- NOTE | 2020-07-17 08:15 | NUR ---
received call from dr. corrales to get humberto bulb drainage sample to lab to check creatinine level.
[2020-07-17 08:45] VITALS: BP 126/74
--- NOTE | 2020-07-17 09:00 | NUR ---
humberto sample to lab.
[2020-07-17] MEDS: POTASSIUM PHOSPHATE MM 7.5 MMOL in IV NS 0.9% 100 ML IV SCH ×2 (09:28→12:32)
[2020-07-17] MEDS: PANTOPRAZOLE 40 MG VIAL IV SCH (09:28)
[2020-07-17] MEDS: IV NS 0.9% 1,000 ML IV PRN ×2 (11:14→22:40)
--- NOTE | 2020-07-17 13:40 | NUR ---
pt. with multiple piggy backs and antibiotic.
--- NOTE | 2020-07-17 15:00 | NUR ---
orders for low mg.pt. diamond grader light freq.denies pain abd. md elizabeth with abd. x-ray order.humberto bulb being emptied freq.pt. states he told dr. corrales he was not hungry,so he would not be eating all day.stated dr. corrales ok'd.
[2020-07-17 16:24] VITALS: BP 125/69
--- NOTE | 2020-07-17 17:45 | NUR ---
rn emptied pieces of formed stool from colostomy bag.pt. requesting colostomy bag change,even though not leaking and chg. this am.states he does not like looking at it.informed him that too freq. a change would be hard on his skin. pt. stated he did not care.rn advised against this.
[2020-07-17] MEDS: SOD FERRIC GLUC 125 MG in IV NS 0.9% 100 ML IV SCH (18:33)
--- NOTE | 2020-07-17 19:10 | NUR ---
iv infusing along with piggy backs.
--- NOTE | 2020-07-17 19:17 | NUR ---
still to administer mg intravenously.offered to start second iv line.pt. preferred not.
--- NOTE | 2020-07-17 19:30 | NUR ---
MS RN OPENING NOTE PATIENT IN BED AWAKE, A/O X 4. ABLE TO MAKE NEEDS KNOWN. NO N/V COMPLAINTS AT THIS TIME. BREATHING EVEN AND UNLABORED. EVERETTE DRAIN INTACT AND DRAINING SEROUS FLUID. COLOSTOMY STILL INTACT. IV SITE PATENT AND INTACT. ABDOMINAL DRESSING IS STILL IN PLACE, DRY. SAFETY MEASURES IN PLACE. CALL LIGHT WITHIN REACH. WILL MONITOR PATIENT CLOSELY.
--- NOTE | 2020-07-17 19:30 | NUR ---
ivs endorsed to ang mosquera.
[2020-07-17 20:00] VITALS: BP 117/68
[2020-07-17] MEDS: Magnesium 1GM/D5W 100ML PREMIX 100 ML IV SCH (20:12)
--- NOTE | 2020-07-17 20:12 | NUR ---
MS RN NOTE 1 BAG OF MAGNESIUM GIVEN.
--- NOTE | 2020-07-17 21:45 | NUR ---
REPORT RECIEVED FROM MARÍA RAINEY. ASSUMED CARE OF PATIENT.
--- NOTE | 2020-07-17 22:30 | NUR ---
COLOSTOMY BAG CHANGED. TAUGHT ABOUT BASIC COLOSTOMY CARE. PT VERBALIZED UNDERSTANDING.
[2020-07-18] MEDS: Magnesium 1GM/D5W 100ML PREMIX 100 ML IV SCH (01:08)
[2020-07-18] MEDS: ANCEF 1 GM/50 ML D5W IV SCH ×3 (05:22→21:21)
[2020-07-18] MEDS: METRONIDAZOLE 500MG/ NS 100ML 500 MG in PREMIX 1 EA IV SCH ×3 (06:14→23:12)
[2020-07-18 06:41] LABS: BASOPHILS % (AUTO) 0.1 % (0.0-2.0); EOSINOPHILS % (AUTO) 0.6 % (0.0-6.0); HEMATOCRIT 32 % (39-51); LYMPHOCYTES # (AUTO) 0.8 /CMM (0.8-4.8); LYMPHOCYTES % (AUTO) 6.5 % (20.0-44.0); MEAN CORPUSCULAR HGB CONC 31 g/dl (31.0-36.0); MEAN CORPUSCULAR VOLUME 71 fL (80-96); MONOCYTES # (AUTO) 0.9 /CMM (0.1-1.30); MONOCYTES % (AUTO) 7.1 % (2.0-12.0); NEUTROPHILS # (AUTO) 10.4 /CMM (1.8-8.9); NEUTROPHILS % (AUTO) 85.7 % (43.0-81.0); PLATELET COUNT (AUTO) 402 /CMM (150-450); RED BLOOD CELL COUNT(AUTO) 4.48 MIL/uL (4.5-6.0); WHITE BLOOD COUNT (AUTO) 12.2 K/uL (4.3-11.0)
[2020-07-18 07:07] LABS: CALCIUM, SERUM 7.4 mg/dL (8.5-10.1); CREATININE 0.8 mg/dL (0.6-1.3); MAGNESIUM 1.9 mg/dL (1.8-2.4); PHOSPHORUS 3.1 mg/dL (2.5-4.9)
[2020-07-18 08:00] VITALS: BP 128/64
[2020-07-18] MEDS: ENSURE CLEAR 237 ML LIQUID (MIX BERRY) PO SCH ×3 (08:10→16:20)
[2020-07-18] MEDS: POTASSIUM CL. PREMIX PERIPHER. 50 ML IV SCH ×4 (08:10→13:28)
[2020-07-18] MEDS: PANTOPRAZOLE 40 MG VIAL IV SCH (08:10)
--- NOTE | 2020-07-18 09:27 | NUR ---
WOUND CARE CONSULT: PT PRESENTS WITH ABDOMINAL AREA SURGICAL DRESSING WHICH IS DRY AND INTACT AND EVERETTE DRAIN WITH SMALL AMOUNT OF SEROUS DRAINAGE. PT HAS COLOSTOMY WHICH IS FUNCTIONING WELL AT THIS TIME WITH BROWN STOOL. PT STATES THAT HE IS LEARNING TO EMPTY AND TO CHANGE HIS POUCH. RECOMMENDATIONS MADE FOR SKIN PROTECTION. DISCUSSED WITH NURSING STAFF. SURGEON FOLLOWING PT. WILL SEE PRN.
[2020-07-18] MEDS: SOD FERRIC GLUC 125 MG in IV NS 0.9% 100 ML IV SCH (14:32)
--- NOTE | 2020-07-18 18:09 | NUR ---
END OF SHIFT SUMMARY REPORT PATIENT RESTING IN BED. A/O X4. ON ROOM AIR, TOLERATING WELL. NO SOB NOTED. NO S/S OF RESPIRATORY DISTRESS. DENIES ANY PAIN OR DISCOMFORT AT THIS TIME. IV ACCESS ON L FA #22 G, INTACT AND PATENT, NS CURRENTLY RUNNING AT 75 ML/HR. LLQ COLOSTOMY WITH BLACK/BROWN LIQUID STOOL, 280 CC OUTPUT, DRAINED NEEDED. PT EDUCATED ABOUT COLOSTOMY. EVERETTE DRAIN ON RLQ, SEROUS, 8 CC OUTPUT. ROUTINE MEDS WERE GIVEN ORDERED. ALL NEEDS HAVE BEEN MET AND ATTENDED. SAFETY MEASURES MAINTAINED. BED IN LOWEST POSITION, BRAKES LOCKED. SIDE RAILS UP X2. CALL LIGHT WITHIN REACH. WILL ENDORSE CONTINUITY OF CARE TO ONCOMING SHIFT.
[2020-07-18 20:00] VITALS: BP 133/76
--- NOTE | 2020-07-18 20:00 | NUR ---
MS RN OPENING NOTES PATIENT AWAKE IN BED, ALERT AND ORIENTED X 4. NO ACUTE DISTRESS OR SHORTNESS OF BREATH NOTED. NO REPORTS OF PAIN AT THIS TIME. LEFT FOREARM IV CLEAN, DRY AND INTACT. EVERETTE DRAIN ON RLQ, DRESSING CLEAN, DRY AND INTACT. LLQ COLOSTOMY BAG WITH BROWN LIQUID STOOL, COLOSTOMY BAG CHANGED. PATIENT ABLE TO MAKE NEEDS KNOWN. SAFETY MEASURES IN PLACE, BED LOCKED IN LOWEST POSITION, BED ALARM ON, CALL LIGHT WITHIN REACH. WILL CONTINUE TO MONITOR
[2020-07-18] MEDS: IV NS 0.9% 1,000 ML IV PRN (22:36)
--- NOTE | 2020-07-19 04:35 | NUR ---
RN NOTES DR. DINERO CAME AND MAKE ROUNDS, DR. DINERO CHANGE THE DIET TO REGULAR
[2020-07-19] MEDS: ANCEF 1 GM/50 ML D5W IV SCH ×3 (05:00→21:24)
[2020-07-19] MEDS: METRONIDAZOLE 500MG/ NS 100ML 500 MG in PREMIX 1 EA IV SCH (06:00)
[2020-07-19 06:32] LABS: BASOPHILS % (AUTO) 0.2 % (0.0-2.0); EOSINOPHILS % (AUTO) 0.2 % (0.0-6.0); HEMATOCRIT 30 % (39-51); HEMOGLOBIN 9.6 g/dL (13.5-17.5); LYMPHOCYTES # (AUTO) 0.6 /CMM (0.8-4.8); LYMPHOCYTES % (AUTO) 4.8 % (20.0-44.0); MEAN CORPUSCULAR HGB CONC 32 g/dl (31.0-36.0); MEAN CORPUSCULAR VOLUME 72 fL (80-96); MONOCYTES # (AUTO) 0.9 /CMM (0.1-1.30); MONOCYTES % (AUTO) 7.2 % (2.0-12.0); NEUTROPHILS # (AUTO) 10.8 /CMM (1.8-8.9); NEUTROPHILS % (AUTO) 87.6 % (43.0-81.0); PLATELET COUNT (AUTO) 396 /CMM (150-450); WHITE BLOOD COUNT (AUTO) 12.3 K/uL (4.3-11.0)
--- NOTE | 2020-07-19 06:55 | NUR ---
MS RN CLOSING NOTES PATIENT IN BED, ALERT AND ORIENTED X 4. NO ACUTE DISTRESS OR SHORTNESS OF BREATH NOTED. NO REPORTS OF PAIN AT THIS TIME. IV ACCESS LEFT FOREARM #22G CLEAN, DRY AND INTACT. EVERETTE DRAIN ON RLQ DRESSING CLEAN, DRY AND INTACT, OUTPUT OF 5 ML. LLQ COLOSTOMY BAG WITH OUTPUT OF 350 ML. PATIENT ABLE TO MAKE NEEDS KNOWN. ALL MEDICATIONS GIVEN ORDERED. PATIENT NEEDS MET THROUGHOUT THE SHIFT. SAFETY MEASURES IN PLACE, BED LOCKED IN LOWEST POSITION, BED ALARM ON, CALL LIGHT WITHIN REACH. WILL ENDORSE TO DAY SHIFT NURSE FOR CONTINUITY OF CARE.
[2020-07-19 07:03] LABS: CALCIUM, SERUM 7.8 mg/dL (8.5-10.1); CREATININE 0.7 mg/dL (0.6-1.3); MAGNESIUM 1.7 mg/dL (1.8-2.4); POTASSIUM 3.1 mmol/L (3.5-5.1)
--- NOTE | 2020-07-19 07:15 | NUR ---
MS RN OPENING NOTE RECEIVED PATIENT IN BED. A/O X4. ON ROOM AIR, TOLERATING WELL. NO SOB NOTED. NO S/S OF RESPIRATORY DISTRESS. DENIES ANY PAIN OR DISCOMFORT AT THIS TIME. IV ACCESS ON L FA #22 G, INTACT AND PATENT, NS CURRENTLY RUNNING AT 75 ML/HR. COLOSTOMY ON LLQ, INTACT. EVERETTE DRAIN ON RLQ, INTACT. SAFETY MEASURES MAINTAINED. BED IN LOWEST POSITION, BRAKES LOCKED. SIDE RAILS UP X2. CALL LIGHT WITHIN REACH. WILL CONTINUE PLAN OF CARE.
[2020-07-19 08:00] VITALS: BP 119/75
[2020-07-19] MEDS ORDERED: Magnesium 1GM/D5W 100ML PREMIX 100 ML IV SCH (08:00)
[2020-07-19] MEDS: ENSURE CLEAR 237 ML LIQUID (MIX BERRY) PO SCH ×3 (08:10→17:07)
[2020-07-19] MEDS: POTASSIUM CL. PREMIX PERIPHER. 50 ML IV SCH ×4 (08:15→13:34)
[2020-07-19] MEDS: PANTOPRAZOLE 40 MG TABLET.DR PO SCH (08:15)
[2020-07-19] MEDS: METRONIDAZOLE 500 MG TABLET PO SCH ×2 (12:04→21:23)
--- NOTE | 2020-07-19 14:13 | NUR ---
MS RN NOTE CHANGED THE COLOSTOMY BAG AND ABDOMINAL DRESSING. WILL CONTINUE TO MONITOR THROUGHOUT THE SHIFT.
[2020-07-19] MEDS ORDERED: LIDOCAINE 1% INJ 50 ML MDV IJ ONE (15:30)
--- NOTE | 2020-07-19 18:15 | NUR ---
MS RN NOTE S/P BONE MARROW BIOPSY/ASPIRATION C/O DR WILDE
--- NOTE | 2020-07-19 18:28 | NUR ---
MS RN CLOSING NOTE PATIENT RESTING IN BED. A/O X4. ON ROOM AIR, TOLERATING WELL. NO SOB NOTED. IN NO APPARENT DISTRESS. NO REPORTS OF PAIN OR DISCOMFORT AT THIS TIME. IV ACCESS ON L FA #22 G, INTACT AND PATENT, NS CURRENTLY RUNNING AT 75 ML/HR. COLOSTOMY ON LLQ WITH BROWN LIQUID STOOL, 200 CC OUTPUT. EVERETTE DRAIN ON RLQ, SEROUS, 5 CC OUTPUT. ROUTINE MEDS WERE GIVEN ORDERED. ALL NEEDS HAVE BEEN MET AND ATTENDED. SAFETY MEASURES MAINTAINED. BED IN LOWEST POSITION, BRAKES LOCKED. SIDE RAILS UP X2. CALL LIGHT WITHIN REACH. WILL ENDORSE CONTINUITY OF CARE TO ONCOMING SHIFT.
[2020-07-19] MEDS ORDERED: METOCLOPRAMIDE HCL 10 MG/2 ML VIAL IV PRN (18:30)
[2020-07-19 19:23] LABS: BASOPHILS % (AUTO) 0.2 % (0.0-2.0); EOSINOPHILS % (AUTO) 0.4 % (0.0-6.0); HEMATOCRIT 33 % (39-51); HEMOGLOBIN 10.2 g/dL (13.5-17.5); LYMPHOCYTES # (AUTO) 0.9 /CMM (0.8-4.8); LYMPHOCYTES % (AUTO) 6.8 % (20.0-44.0); MEAN CORPUSCULAR HGB CONC 31 g/dl (31.0-36.0); MEAN CORPUSCULAR VOLUME 72 fL (80-96); MONOCYTES # (AUTO) 0.9 /CMM (0.1-1.30); MONOCYTES % (AUTO) 7.1 % (2.0-12.0); NEUTROPHILS # (AUTO) 11.4 /CMM (1.8-8.9); NEUTROPHILS % (AUTO) 85.5 % (43.0-81.0); PLATELET COUNT (AUTO) 424 /CMM (150-450); RED BLOOD CELL COUNT(AUTO) 4.53 MIL/uL (4.5-6.0); WHITE BLOOD COUNT (AUTO) 13.3 K/uL (4.3-11.0)
[2020-07-19 20:00] VITALS: BP 123/72
--- NOTE | 2020-07-19 20:00 | NUR ---
MS RN OPENING NOTES PATIENT AWAKE IN BED, ALERT AND ORIENTED X 4. NO ACUTE DISTRESS OR SHORTNESS OF BREATH NOTED. NO REPORTS OF PAIN AT THIS TIME. IV ACCESS LEFT FOREARM #22G CLEAN, DRY AND INTACT. EVERETTE DRAIN ON RLQ, DRESSING CLEAN, DRY AND INTACT. LLQ COLOSTOMY BAG WITH SCANT AMOUNT OF BROWN LIQUID STOOL. PATIENT ABLE TO MAKE NEEDS KNOWN. SAFETY MEASURES IN PLACE, BED LOCKED IN LOWEST POSITION, BED ALARM ON, CALL LIGHT WITHIN REACH. WILL CONTINUE TO MONITOR
[2020-07-19 20:18] VITALS: BP 123/72
[2020-07-19 21:18] LABS: BAND % (MANUAL) 2 % (0.0-5.0); LYMPHOCYTES % (MANUAL) 14 % (16-48); MONOCYTES % (MANUAL) 3 % (0-11.0); NEUTROPHILS % (MANUAL) 81 (42-76)
[2020-07-19] MEDS: IV NS 0.9% 1,000 ML IV PRN (21:29)
[2020-07-20] MEDS: METRONIDAZOLE 500 MG TABLET PO SCH ×3 (05:09→20:06)
[2020-07-20] MEDS: ANCEF 1 GM/50 ML D5W IV SCH ×3 (05:09→21:16)
[2020-07-20 06:22] LABS: BASOPHILS % (AUTO) 0.1 % (0.0-2.0); EOSINOPHILS % (AUTO) 0.3 % (0.0-6.0); HEMATOCRIT 33 % (39-51); HEMOGLOBIN 10.3 g/dL (13.5-17.5); LYMPHOCYTES # (AUTO) 0.8 /CMM (0.8-4.8); MEAN CORPUSCULAR HGB CONC 31 g/dl (31.0-36.0); MEAN CORPUSCULAR VOLUME 73 fL (80-96); MONOCYTES # (AUTO) 0.9 /CMM (0.1-1.30); MONOCYTES % (AUTO) 6.7 % (2.0-12.0); NEUTROPHILS # (AUTO) 11.9 /CMM (1.8-8.9); NEUTROPHILS % (AUTO) 86.9 % (43.0-81.0); PLATELET COUNT (AUTO) 412 /CMM (150-450); RED BLOOD CELL COUNT(AUTO) 4.52 MIL/uL (4.5-6.0); WHITE BLOOD COUNT (AUTO) 13.7 K/uL (4.3-11.0)
--- NOTE | 2020-07-20 07:00 | NUR ---
MS RN CLOSING NOTES PATIENT IN BED, ALERT AND ORIENTED X 4. NO ACUTE DISTRESS OR SHORTNESS OF BREATH NOTED. NO REPORTS OF PAIN AT THIS TIME. IV ACCESS LEFT FOREARM #22G CLEAN, DRY AND INTACT. EVERETTE DRAIN ON RLQ DRESSING CLEAN, DRY AND INTACT, OUTPUT OF 2 ML. LLQ COLOSTOMY BAG WITH OUTPUT OF 550 ML. PATIENT ABLE TO MAKE NEEDS KNOWN. ALL MEDICATIONS GIVEN ORDERED. PATIENT NEEDS MET THROUGHOUT THE SHIFT. SAFETY MEASURES IN PLACE, BED LOCKED IN LOWEST POSITION, BED ALARM ON, CALL LIGHT WITHIN REACH. WILL ENDORSE TO DAY SHIFT NURSE FOR CONTINUITY OF CARE.
[2020-07-20 07:15] LABS: CALCIUM, SERUM 7.8 mg/dL (8.5-10.1); CREATININE 0.6 mg/dL (0.6-1.3); MAGNESIUM 1.8 mg/dL (1.8-2.4); PHOSPHORUS 2.3 mg/dL (2.5-4.9); POTASSIUM 3.4 mmol/L (3.5-5.1)
--- NOTE | 2020-07-20 07:26 | NUR ---
MS RN OPENING NOTES RECEIVED PATIENT IN BED, AWAKE, A/O X4. PATIENT ON ROOM AIR; BREATHING EVEN AND UNLABORED. MILD PAIN STATED AT THE BIOPSY SITE. R SIDE EVERETTE DRAIN PRESENT, NO OUTPUT. COLOSTOMY SCANT IN PLACE AND EMPTY AT THIE TIME. LFA G # 22 IV ACCESS PRESENT, INTACT AND INFUSING NS @75 MLS/HR. SAFETY PRECAUTIONS IN PLACE; BED IN LOW POSITION AND LOCKED, RAILS UPX2, CALL LIGHT WITHIN REACH. WILL CONTINUE TO MONITOR PATIENT.
[2020-07-20 08:00] VITALS: BP 122/74
[2020-07-20] MEDS: PANTOPRAZOLE 40 MG TABLET.DR PO SCH (08:00)
[2020-07-20] MEDS: ENSURE CLEAR 237 ML LIQUID (MIX BERRY) PO SCH ×2 (08:00→11:41)
[2020-07-20] MEDS ORDERED: POTASSIUM CHLORIDE 20 MEQ TAB.PRT.SR PO SCH (10:00)
[2020-07-20] MEDS ORDERED: K PHOS NEUTRAL 250 MG TABLET PO ONE (12:30)
[2020-07-20] MEDS: IV NS 0.9% 1,000 ML IV PRN (14:09)
--- NOTE | 2020-07-20 15:10 | NUR ---
MS RN NOTES PATIENT SEEN BY DR WILDE WITH NO NEW ORDER AT THIS TIME. WILL CONTINUE CLOSELY MONITORING OF PATIENT
[2020-07-20 16:00] VITALS: BP 123/80
--- NOTE | 2020-07-20 18:36 | NUR ---
MS RN CLOSING NOTE PATIENT ON BED, ALERT AND ORIENTED X 4 WITH NO SIGNS OF DISTRESS. PATIENT ON ROOM AIR, TOLERATED WELL WITH NO SIGNS OF RESPIRATORY DISTRESS. PATIENT DENIES ANY PAIN OR DISCOMFORT AT THIS TIME. IV ACCESS ON THE LEFT FOREARM GAUGE 22, COVERED WITH TEGADERM, INTACT AND PATENT. PATIENT WITH ONGOING IVF OF NORMAL SALINE RUNNING AT 75ML/HR, INFUSING WELL. PATIENT WITH COLOSTOMY INTACT. WITH EVERETTE DRAIN WITH SEROSANGUINOUS DRAINAGE, MAINTAINED NEGATIVE PRESSURE. SAFETY MEASURES MAINTAINED. BED IN LOWEST POSITION, BRAKES LOCKED AND SIDE RAILS UP FOR SAFETY AND BED MOBILITY. CALL LIGHT WITHIN REACH AT ALL TIMES. WILL ENDORSE CONTINUITY OF CARE TO ONCOMING SHIFT.
--- NOTE | 2020-07-20 19:33 | NUR ---
MS RN OPENING NOTE PATIENT A/OX4; ABLE TO MAKE NEEDS KNOWN. ON ROOM AIR; TOLERATING WELL WITH NO SOB. EVERETTE DRAIN PATENT AND INTACT; NOTED WITH 10ML OF OUTPUT. COLONOSCOPY PATENT AND INTACT; NO OUTPUT NOTED. ABDOMINAL DRESSING KEPT C/D/I. LFA #22G; INFUSING NS @ 75ML/HR; PATENT AND INTACT. DENIES PAIN OR DISCOMFORT AT THIS TIME. SAFETY MEASURES IN PLACE: BED IN LOWEST LOCKED POSITION, BED ALARMS ON, CALL LIGHT WITHIN EASY REACH. PATIENT IS STABLE AT THIS TIME; WILL CONTINUE PLAN OF CARE.
[2020-07-20 20:00] VITALS: BP 115/73
[2020-07-21] MEDS: IV NS 0.9% 1,000 ML IV PRN ×2 (04:25→18:53)
[2020-07-21] MEDS: ANCEF 1 GM/50 ML D5W IV SCH (05:01)
[2020-07-21] MEDS: METRONIDAZOLE 500 MG TABLET PO SCH ×3 (05:02→20:32)
--- NOTE | 2020-07-21 06:24 | NUR ---
MS RN CLOSING NOTE PATIENT A/OX4; ABLE TO MAKE NEEDS KNOWN. ON ROOM AIR; TOLERATING WELL WITH NO SOB. EVERETTE DRAIN PATENT AND INTACT. COLONOSCOPY PATENT AND INTACT; BROWN LIQUIDY OUTPUT NOTED. ABDOMINAL DRESSING KEPT C/D/I. LFA #22G; INFUSING NS @ 75ML/HR; PATENT AND INTACT. DENIES PAIN OR DISCOMFORT AT THIS TIME. SAFETY MEASURES IN PLACE: BED IN LOWEST LOCKED POSITION, BED ALARMS ON, CALL LIGHT WITHIN EASY REACH. PATIENT IS STABLE AT THIS TIME; WILL ENDORSE PLAN OF CARE TO ONCOMING MORNING RN.
[2020-07-21 06:36] LABS: CALCIUM, SERUM 7.8 mg/dL (8.5-10.1); CREATININE 0.7 mg/dL (0.6-1.3); PHOSPHORUS 2.9 mg/dL (2.5-4.9); POTASSIUM 3.8 mmol/L (3.5-5.1)
--- NOTE | 2020-07-21 07:50 | NUR ---
MS/RN OPENING NOTE RECEIVED PATIENT FROM EXTRUSION BENDER NURSE. PATIENT IS SEEN LAYING IN BED A/O X4. NO ACUTE DISTRESS NOTED AT THIS TIME. PATIENT IS ON ROOM AIR, TOLERATING WELL, NO SOB NOTED, BREATHING EVEN, NON LABORED. PATIENT REPORTS HAVING FLATULENCE IN COLOSTOMY BAG. SAFETY MEASURES IN PLACE, BED LOCKED AND IN LOWEST POSITION, CALL LIGHT WITHIN REACH. WILL CONTINUE TO MONITOR AND ENSURE SAFETY.
[2020-07-21 08:00] VITALS: BP 123/83
[2020-07-21] MEDS: PANTOPRAZOLE 40 MG TABLET.DR PO SCH (08:23)
[2020-07-21] MEDS ORDERED: IOHEXOL-300 100 ML VIAL IV ONE (08:56)
--- NOTE | 2020-07-21 12:28 | NUR ---
MS/RN NOTE PATIENT WAS SEEN BY DR. BAR MD REMOVED EVERETTE DRAIN AND ORDERED TO HAVE EVERETTE SITE COVERED WITH DRESSING AND REMOVED EVERY OTHER SKIN STAPLE. ORDERS RECEIVED AND CARRIED OUT.
[2020-07-21 16:00] VITALS: BP 119/75
[2020-07-21] MEDS: CEPHALEXIN MONOHYDRATE 500 MG CAPSULE PO SCH ×2 (16:18→20:32)
--- NOTE | 2020-07-21 18:27 | NUR ---
MS/RN NOTE NURSING ACCOUNTING PROFESSIONAL CALLED TO NOTIFY THAT DR. WEEKS HAD CALLED HER TO SET UP A TIME FOR A PERMACATH PLACEMENT FOR PATIENT ON THURSDAY AT 1000.
--- NOTE | 2020-07-21 18:40 | NUR ---
MS/RN CORRECTION OF PREVIOUS NOTE PORTACATH PLACEMENT INSTEAD OF PERMACATH PLACEMENT.
--- NOTE | 2020-07-21 18:42 | NUR ---
MS/RN CLOSING NOTE PATIENT IS SEEN LAYING IN BED A/O X4. NO ACUTE DISTRESS NOTED AT THIS TIME. PATIENT IS ON ROOM AIR, TOLERATING WELL, NO SOB NOTED, BREATHING EVEN, NON LABORED. SAFETY MEASURES IN PLACE, BED LOCKED AND IN LOWEST POSITION, CALL LIGHT WITHIN REACH. ALL NEEDS MET THROUGHOUT THE SHIFT. WILL ENDORSE TO STAGECRAFT TEACHER NURSE.
--- NOTE | 2020-07-21 19:15 | NUR ---
MS RN OPENING NOTE PATIENT IN BED AWAKE, A/O X 4. BREATHING EVEN AND UNLABORED, NO S/S OF RESPIRATORY DISTRESS. PATIENT DOES NOT C/O ANY PAIN OR DISCOMFORT AT THIS TIME. R ABDOMINAL INCISION DRESSING INTACT, CLEAN AND DRY. COLOSTOMY INTACT, STOMA PINKISH COLOR. SAFETY MEASURES IN PLACE: BED IN LOCKED AND LOWEST POSITION, CALL LIGHT WITHIN REACH, SIDE RAILS UP. WILL MONITOR PATIENT THROUGHOUT THE SHIFT.
[2020-07-21 20:00] VITALS: BP 112/77
[2020-07-22] MEDS: METRONIDAZOLE 500 MG TABLET PO SCH ×3 (05:08→20:44)
[2020-07-22 06:22] LABS: BASOPHILS % (AUTO) 0.1 % (0.0-2.0); EOSINOPHILS % (AUTO) 0.5 % (0.0-6.0); HEMATOCRIT 33 % (39-51); HEMOGLOBIN 10.3 g/dL (13.5-17.5); LYMPHOCYTES # (AUTO) 1.1 /CMM (0.8-4.8); MEAN CORPUSCULAR HGB CONC 31 g/dl (31.0-36.0); MEAN CORPUSCULAR VOLUME 75 fL (80-96); MONOCYTES # (AUTO) 1.2 /CMM (0.1-1.30); MONOCYTES % (AUTO) 9.4 % (2.0-12.0); NEUTROPHILS # (AUTO) 9.9 /CMM (1.8-8.9); PLATELET COUNT (AUTO) 457 /CMM (150-450); RED BLOOD CELL COUNT(AUTO) 4.47 MIL/uL (4.5-6.0); WHITE BLOOD COUNT (AUTO) 12.3 K/uL (4.3-11.0)
[2020-07-22 06:38] LABS: CALCIUM, SERUM 8.6 mg/dL (8.5-10.1); CREATININE 0.6 mg/dL (0.6-1.3); MAGNESIUM 1.9 mg/dL (1.8-2.4); PHOSPHORUS 3.4 mg/dL (2.5-4.9); POTASSIUM 3.8 mmol/L (3.5-5.1)
--- NOTE | 2020-07-22 06:54 | NUR ---
MS RN CLOSING NOTE PATIENT IN BED EYES CLOSED, EASILY AWAKEN, A/O X 4. BREATHING EVEN AND UNLABORED, NO S/S OF RESPIRATORY DISTRESS. PATIENT DOES NOT C/O ANY PAIN OR DISCOMFORT AT THIS TIME. R ABDOMINAL INCISION DRESSING STILL INTACT, CLEAN, AND DRY. COLOSTOMY INTACT, TOTAL LIQUID STOOL 40 ML, STOMA PINKISH COLOR. IV FLUIDS RUNNING. SAFETY MEASURES MAINTAINED THROUGHOUT THE SHIFT: BED IN LOCKED AND LOWEST POSITION, CALL LIGHT WITHIN REACH, SIDE RAILS UP. ALL NEEDS MET AND ATTENDED. ALL ORDERS CARRIED OUT. WILL ENDORSE TO DAY SHIFT NURSE FOR MAXINE.
--- NOTE | 2020-07-22 07:15 | NUR ---
MS RN OPENING NOTE RECEIVED PATIENT IN BED. A/O X4. ON ROOM AIR, TOLERATING WELL. NO SOB NOTED. IN NO APPARENT DISTRESS. DENIES ANY PAIN OR DISCOMFORT AT THIS TIME. IV ACCESS ON L FA #22 G, INTACT AND PATENT, NS CURRENTLY RUNNING AT 75 ML/HR. COLOSTOMY ON LLQ, INTACT, STOMA PINKISH IN COLOR. SAFETY MEASURES MAINTAINED. BED IN LOWEST POSITION, BRAKES LOCKED. SIDE RAILS UP X2. CALL LIGHT WITHIN REACH. WILL CONTINUE PLAN OF CARE.
[2020-07-22] MEDS: IV NS 0.9% 1,000 ML IV PRN (07:18)
[2020-07-22 08:19] VITALS: BP 118/74
[2020-07-22] MEDS: PANTOPRAZOLE 40 MG TABLET.DR PO SCH (08:30)
[2020-07-22] MEDS: CEPHALEXIN MONOHYDRATE 500 MG CAPSULE PO SCH ×4 (08:30→20:44)
[2020-07-22 15:59] VITALS: BP 110/73
--- NOTE | 2020-07-22 18:01 | NUR ---
MS RN CLOSING NOTE PATIENT RESTING IN BED. A/O X4. ON ROOM AIR, SATURATING WELL AT 96%. NO SOB NOTED. SHOWS NO SIGNS OF RESPIRATORY DISTRESS. NO REPORTS OF PAIN OR DISCOMFORT AT THIS TIME. IV ACCESS ON L FA #22 G, INTACT AND PATENT, NS CURRENTLY RUNNING AT 75 ML/HR. COLOSTOMY ON LLQ, INTACT, STOMA PINKISH IN COLOR, SOFT BROWN STOOL. ABDOMINAL DRESSING C/D/I. CONSENTS SIGNED. ROUTINE MEDS WERE GIVEN ORDERED. ALL NEEDS HAVE BEEN MET AND ATTENDED. DVT PUMP ON BLE. REMINDED THE PATIENT TO BE ON NPO AT MIDNIGHT. SAFETY MEASURES MAINTAINED. BED IN LOWEST POSITION, BRAKES LOCKED. SIDE RAILS UP X2. CALL LIGHT WITHIN REACH. WILL ENDORSE CONTINUITY OF CARE TO ONCOMING SHIFT.
--- NOTE | 2020-07-22 19:15 | NUR ---
MS RN OPENING NOTE PATIENT IN BED, DR. WILDE AT BEDSIDE. PATIENT IS ALERT AND ORIENTED X 4. ABDOMINAL DRESSING INTACT, COLOSTOMY INTACT. BREATHING EVEN AND UNLABORED. PATIENT NOT IN ANY CURRENT DISTRESS. NS INFUSING WELL AT 75 ML/HR. SAFETY MEASURES IN PLACE: SIDE RAILS UP, BED IN LOCKED AND LOWEST POSITION, CALL LIGHT WITHIN REACH. WILL MONITOR PATIENT CLOSELY DURING THE SHIFT.
[2020-07-22 20:00] VITALS: BP 115/71
[2020-07-23] MEDS: METRONIDAZOLE 500 MG TABLET PO SCH ×2 (05:00→13:20)
[2020-07-23 06:25] LABS: BASOPHILS % (AUTO) 0.2 % (0.0-2.0); EOSINOPHILS % (AUTO) 1.1 % (0.0-6.0); HEMATOCRIT 33 % (39-51); HEMOGLOBIN 10.5 g/dL (13.5-17.5); LYMPHOCYTES # (AUTO) 0.8 /CMM (0.8-4.8); LYMPHOCYTES % (AUTO) 6.2 % (20.0-44.0); MEAN CORPUSCULAR HGB CONC 32 g/dl (31.0-36.0); MEAN CORPUSCULAR VOLUME 74 fL (80-96); MONOCYTES # (AUTO) 1.5 /CMM (0.1-1.30); MONOCYTES % (AUTO) 11.2 % (2.0-12.0); NEUTROPHILS # (AUTO) 10.7 /CMM (1.8-8.9); NEUTROPHILS % (AUTO) 81.3 % (43.0-81.0); PLATELET COUNT (AUTO) 485 /CMM (150-450); RED BLOOD CELL COUNT(AUTO) 4.51 MIL/uL (4.5-6.0); WHITE BLOOD COUNT (AUTO) 13.2 K/uL (4.3-11.0)
[2020-07-23 06:59] LABS: CALCIUM, SERUM 8.6 mg/dL (8.5-10.1); CREATININE 0.6 mg/dL (0.6-1.3); POTASSIUM 3.8 mmol/L (3.5-5.1)
--- NOTE | 2020-07-23 07:02 | NUR ---
MS RN NOTES FAIRLY RESTED AT NIGHT,KEPT NPO POST MIDNIGHT FOR PERMA CATH PLACEMENT BY DR WEEKS,CONSENT ON CHART.VITAL SIGNS STABLE.CALL LIGHT IN REACH,NEEDS ATTENDED.
--- NOTE | 2020-07-23 07:15 | NUR ---
MS RN OPENING NOTE RECEIVED PATIENT IN BED. A/O X4. ON ROOM AIR, TOLERATING WELL. NO SOB NOTED. NO S/S OF RESPIRATORY DISTRESS. DENIES ANY PAIN OR DISCOMFORT AT THIS TIME. IV ACCESS ON L FA #22 G, INTACT AND PATENT, NS CURRENTLY RUNNING AT 75 ML/HR. PT IS CURRENTLY ON NPO STATUS. CONSENT FOR THE PROCEDURE SIGNED. COLOSTOMY ON LLQ, INTACT, STOMA PINKISH IN COLOR. ABDOMINAL DRESSING C/D/I. SAFETY MEASURES MAINTAINED. BED IN LOWEST POSITION, BRAKES LOCKED. SIDE RAILS UP X2. CALL LIGHT WITHIN REACH. WILL CONTINUE PLAN OF CARE.
[2020-07-23] MEDS: PANTOPRAZOLE 40 MG TABLET.DR PO SCH ×2 (08:03→08:05)
[2020-07-23] MEDS: CEPHALEXIN MONOHYDRATE 500 MG CAPSULE PO SCH ×4 (08:03→17:03)
[2020-07-23 08:35] VITALS: BP 110/68
[2020-07-23] MEDS ORDERED: ANESTHESIA TRAY IN PYXIS 1 EA TRAY MC ONE (09:24)
[2020-07-23] MEDS ORDERED: HEPARIN SODIUM, PORCINE 1,000 UNIT/ML VIAL ONE (09:24)
[2020-07-23] MEDS ORDERED: LIDOCAINE HCL/MPF 1% 30 ML VIAL IJ ONE (09:25)
[2020-07-23] MEDS ORDERED: IOHEXOL 240MG/ML 50 ML IV ONE (09:25)
--- NOTE | 2020-07-23 09:36 | NUR ---
MS RN NOTE PATIENT WAS BROUGHT DOWN TO THE OR FOR PORTACATH INSERTION
[2020-07-23] MEDS ORDERED: FENTANYL PF 100MCG/2ML AMPUL ONE (09:53)
--- NOTE | 2020-07-23 12:00 | NUR ---
MS RN NOTE PATIENT JUST GOT BACK FROM THE OR. RECEIVED REPORT FROM BRIGID ONEIL, TO RESUME ALL PRIOR ORDERS VS BP 111/69 DE 65 RR 18 T 97.8 SP02 99% WILL CONTINUE TO MONITOR THROUGHOUT THE SHIFT.
[2020-07-23] MEDS: HYDROCODONE/APAP 5/325MG TABLET PO PRN (13:21)
[2020-07-23] MEDS ORDERED: FERROUS SULFATE (325 MG) 325 MG/TAB TABLET PO SCH (17:00)
--- NOTE | 2020-07-23 17:36 | NUR ---
MS RN NOTE: DISCHARGE PATIENT DISCHARGED. ASSISTED THE PT, BROUGHT DOWN VIA WHEELCHAIR. PICKED UP BY , [facility]. DISCHARGE INSTRUCTIONS AND HEALTH TEACHINGS WERE GIVEN. PT VERBALIZED UNDERSTANDING. COLOSTOMY BAG CHANGED PRIOR DISCHARGE. REMOVED IV ACCESS AND ID [id number]. BELONGINGS WERE GIVEN TO THE PT.
== END 2020-07-23 17:00 | disposition home or self-care (01) | DRG 710 ==
LOC: ER 20:07 → TELE1 23:13 → ICU 23:22 → MED 07-13 17:03
PROVIDERS: ADMIT Student in an Organized Health Care Education/Training Program
PROC: 0DTN0ZZ Resection of Sigmoid Colon, Open Approach (ICD-10-PCS; principal; 2020-07-11)
PROC: 0D1N0Z4 Bypass Sigmoid Colon to Cutaneous, Open Approach (ICD-10-PCS; 2020-07-11)
PROC: 30233N1 Transfusion of Nonautologous Red Blood Cells into Peripheral Vein, Percutaneous Approach (ICD-10-PCS; 2020-07-12)
PROC: 07DR3ZX Extraction of Iliac Bone Marrow, Percutaneous Approach, Diagnostic (ICD-10-PCS; 2020-07-19)
PROC: 0JHD3WZ Insertion of Totally Implantable Vascular Access Device into Right Upper Arm Subcutaneous Tissue and Fascia, Percutaneous Approach (ICD-10-PCS; 2020-07-23)
PROC: 05HM33Z Insertion of Infusion Device into Right Internal Jugular Vein, Percutaneous Approach (ICD-10-PCS; 2020-07-23)
PROC: B513YZA Fluoroscopy of Right Jugular Veins using Other Contrast, Guidance (ICD-10-PCS; 2020-07-23)
DX: A41.51 Sepsis due to Escherichia coli [E. coli] (principal); K63.1 Perforation of intestine (nontraumatic); K65.1 Peritoneal abscess; J90 Pleural effusion, not elsewhere classified; K56.600 Partial intestinal obstruction, unspecified as to cause; E44.0 Moderate protein-calorie malnutrition; C77.9 Secondary and unspecified malignant neoplasm of lymph node, unspecified; C90.00 Multiple myeloma not having achieved remission; N17.9 Acute kidney failure, unspecified; E87.1 Hypo-osmolality and hyponatremia; K56.7 Ileus, unspecified; C19 Malignant neoplasm of rectosigmoid junction; Z20.822 Contact with and (suspected) exposure to COVID-19; K59.00 Constipation, unspecified; K66.8 Other specified disorders of peritoneum; D47.2 Monoclonal gammopathy; D50.9 Iron deficiency anemia, unspecified; K64.4 Residual hemorrhoidal skin tags
CPT/HCPCS: 36415; 71045-TC; 71260-TC; 74018; 76705-TC; 80048-TC; 80061-TC; 80076-TC; 81001; 82232; 82378; 82565-TC; 82728-TC; 82784; 83540-TC; 83605-TC; 83690-TC; 83735-TC; 84100-TC; 84155; 84165; 84443-TC; 85025-TC; 85610-TC; 85730-TC; 86334; 86850-TC; 87040-TC; 87070-TC; 87075-TC; 87081-TC; 87086-TC; 87186-TC; 88309-TC; 88342; 97116-TC; 97530-TC; A4216; A6209; A6253; A6403; A9563; C1788; C9113; C9803; G0378; J0690; J1170; J1200; J1644; J2250; J2270; J2405; J2543; J2704; J2765; J2916; J3010; J3475; J3480; J3490; J7030; J7050; J7060; P9016; Q9966; Q9967